=== PATIENT | male | born 1980 | race Caucasian/White ===

== ENCOUNTER 2022-05-06 20:37 | Emergency (ER) | payer MEDICAID ==
[~2022-05-06] VITALS: Ht 175.3 cm; Wt 77.3 kg
[~2022-05-06 20:37] MED LIST: ESCI10TA45 PO; IBUP-1051 PO; LOP25T PO
[2022-05-06 20:40] VITALS: BP 144/92
[2022-05-06] MEDS ORDERED: terbinafine cream 30gm TP ONE (21:15)
[2022-05-06] MEDS ORDERED: ibuprofen 200mg tablet PO ONE (21:15)
== END 2022-05-06 22:04 | disposition home or self-care (01) ==
LOC: ER 20:37
DX: B35.3 Tinea pedis (principal); Z59.00 Homelessness unspecified; Z56.0 Unemployment, unspecified; Z79.899 Other long term (current) drug therapy; Z79.1 Long term (current) use of non-steroidal anti-inflammatories (NSAID)
CPT/HCPCS: 99281

== ENCOUNTER 2022-05-25 14:06 | Emergency (ER) | payer MEDICAID | END 2022-05-25 18:20 | disposition left against medical advice (07) | LOC: ER 14:07 | DX: J34.89 Other specified disorders of nose and nasal sinuses (principal); Z53.21 Procedure and treatment not carried out due to patient leaving prior to being seen by health care provider ==

== ENCOUNTER 2022-07-25 16:11 | Emergency (ER) | payer MEDICAID ==
[~2022-07-25] VITALS: Ht 175.3 cm; Wt 81.8 kg
[2022-07-25 16:40] VITALS: BP 143/87
== END 2022-07-25 19:51 | disposition left against medical advice (07) ==
LOC: ER 16:12
DX: M79.604 Pain in right leg (principal); M79.18 Myalgia, other site; Z53.21 Procedure and treatment not carried out due to patient leaving prior to being seen by health care provider; V87.7XXA Person injured in collision between other specified motor vehicles (traffic), initial encounter; Y93.89 Activity, other specified; Y92.488 Other paved roadways as the place of occurrence of the external cause; Y99.8 Other external cause status